=== PATIENT | male | born 1980 | race Caucasian/White ===

== ENCOUNTER 2017-09-11 23:15 | Emergency (ER) | payer OTHER ==
[2017-09-12] MEDS: KETOROLAC 60 MG INJ IM (01:08)
[2017-09-12 01:28] LABS: ADD MAN DIFF? NO
[2017-09-12 01:29] LABS: BASOPHIL # 0.1 10^3/ul (0.0-0.1); BASOPHILS % 0.5 % (0.0-2.0); EOSINOPHILS # 0.2 10^3/ul (0.0-0.5); EOSINOPHILS % 1.6 % (0.0-7.0); HEMATOCRIT 41.3 % (42.0-52.0); HEMOGLOBIN 14.2 g/dl (14.0-18.0); LYMPHOCYTES # 2.6 10^3/ul (0.8-2.9); LYMPHOCYTES % 23.8 % (15.0-51.0); MEAN CORPUSCULAR HEMOGLOBIN 30.1 pg (29.0-33.0); MEAN CORPUSCULAR HGB CONC 34.4 g/dl (32.0-37.0); MEAN CORPUSCULAR VOLUME 87.7 fl (82.0-101.0); MONOCYTE # 0.9 10^3/ul (0.3-0.9); MONOCYTES % 8.1 % (0.0-11.0); NEUTROPHIL # 7.1 10^3/ul (1.6-7.5); NEUTROPHILS % 65.8 % (39.0-77.0); PLATELET COUNT 414 10^3/UL (140-415); RED BLOOD COUNT 4.71 10^6/ul (4.70-6.10); RED CELL DISTRIBUTION WIDTH 12.8 % (11.5-14.5)
[2017-09-12 01:29] LABS: WHITE BLOOD COUNT 10.8 10^3/ul (4.8-10.8)
[2017-09-12 01:57] LABS: ALANINE AMINOTRANSFERASE 51 IU/L (13-69); ALBUMIN 4.6 g/dl (3.3-4.9); ALBUMIN/GLOBULIN RATIO 1.17; ALKALINE PHOSPHATASE 106 IU/L (42-121); ANION GAP 21 (8-16); ASPARTATE AMINO TRANSFERASE 37 IU/L (15-46); BILIRUBIN,INDIRECT 0.1 mg/dl (0-1.1); BILIRUBIN,TOTAL 0.1 mg/dl (0.2-1.3); BLOOD UREA NITROGEN 19 mg/dl (7-20); CARBON DIOXIDE 28 mmol/L (21-31); CHLORIDE 102 mmol/L (97-110); CREATININE 1.06 mg/dl (0.61-1.24); GLUCOSE 124 mg/dl (70-220); POTASSIUM 4.1 mmol/L (3.5-5.1); SODIUM 147 mmol/L (135-144); TOTAL PROTEIN 8.5 g/dl (6.1-8.1); URIC ACID 9.1 mg/dl (3.1-7.9)
[2017-09-12] MEDS: HYDROCODONE/APAP (5/325) TAB PO (02:59)
== END 2017-09-12 03:10 | disposition home or self-care (01) ==
LOC: FTE 23:15
DX: M10.072 Idiopathic gout, left ankle and foot (principal); M10.071 Idiopathic gout, right ankle and foot; I10 Essential (primary) hypertension
CPT/HCPCS: 73600; 73600-50; 80053; 84560; 85025; 96372; 99284-25

== ENCOUNTER 2018-10-12 00:11 | Emergency (ER) | payer OTHER ==
[2018-10-12] MEDS: predniSONE 20 MG TAB PO (03:20)
[2018-10-12] MEDS: KETOROLAC 15 MG INJ IM (03:20)
== END 2018-10-12 03:47 | disposition home or self-care (01) ==
LOC: FTE 00:11
DX: M10.9 Gout, unspecified (principal); I10 Essential (primary) hypertension; R40.2412 Glasgow coma scale score 13-15, at arrival to emergency department
CPT/HCPCS: 96372; 99284-25